=== PATIENT | male | born 1960 | race Caucasian/White ===

== ENCOUNTER 2019-08-26 13:53 | Emergency (ER) | payer MEDICAID ==
[~2019-08-26] VITALS: Ht 190.5 cm; Wt 96.0 kg
--- NOTE | 2019-08-26 14:20 | NUR ---
PT TEARFUL, COOPERATIVE WITH ASSESSMENT. STATES "I'M HEARING VOICES. THEY'RE CHANTING SCARY STUFF, SAYING 'JUST DO IT'". COMPLIANT WITH PSYCH MEDS. PT GIVEN URINE CUP AND INSTRUCTIONS ON USE. VERBALIZES UNDERSTANDING. PROVIDED WITH COLD WATER PER REQUEST. DNIES ANY FURTHER NEEDS OR CONCERNS AT THIS TIME.
--- NOTE | 2019-08-26 14:28 | NUR ---
PT AMBULATORY WITH STEADY GAIT TO ROOM. CHANGING INTO GOWN NOW. MD AT BEDSIDE TO ASSESS PT. PT PROVIDED URINE SAMPLE. URINE COLLECTED. PT'S BELONGINGS PLACED INTO BELONGINGS BAGS AND PUT INTO SECURE LOCKER.
--- NOTE | 2019-08-26 14:40 | NUR ---
2 LABELED BAGS OF BELONGINGS AND 2 LABELED BACKPACKS PLACED IN SECURE LOCKER. PT RESTING ON GURNEY IN GOWN WITH HOSPITAL PROVIDED SOCKS. PROVIDED WITH WARM BLANKET AND WATER. SITTER AT BEDSIDE. ROOM SECURE. PT AWARE OF POC. DENIES NEEDS AT THIS TIME.
[2019-08-26] MEDS ORDERED: LISI-167 PO (14:50)
[2019-08-26] MEDS ORDERED: DIVA500T2 PO (14:50)
[2019-08-26] MEDS ORDERED: HYDR50CA PO (14:50)
[2019-08-26 14:57] LABS: BASOPHILS # (AUTO) 0.05 x10^3/uL (0-0.1); BASOPHILS % (AUTO) 1 % (0-1); EOSINOPHILS % (AUTO) 2 % (1-7); LYMPHOCYTES # (AUTO) 1.94 x10^3/uL (1-3.4); LYMPHOCYTES % (AUTO) 22 % (22-44); MD NO; MEAN CORPUSCULAR HEMOGLOBIN 28.7 pg (27.5-34.5); MEAN CORPUSCULAR HGB CONC 32.5 g/dL (33.2-36.2); MEAN CORPUSCULAR VOLUME 88.4 fL (81-97); MEAN PLATELET VOLUME 7.7 fL (7.4-10.4); MONOCYTES # (AUTO) 0.87 x10^3/uL (0.2-0.8); MONOCYTES % (AUTO) 10 % (2-9); NEUTROPHILS # (AUTO) 5.66 x10^3/uL (1.8-6.8); NEUTROPHILS % (AUTO) 65 % (42-75); PLATELET COUNT 298 x10^3/uL (130-400); RED BLOOD COUNT 5.36 x10^6/uL (4.38-5.82)
[2019-08-26 15:06] LABS: ALBUMIN 4.3 g/dL (3.4-5.0); ANION GAP 5 mmol/L (5-15); CALCIUM 9.3 mg/dL (8.5-10.1); CHLORIDE 103 mmol/L (98-107); CREATININE 1.02 mg/dL (0.7-1.3)
[2019-08-26 15:08] LABS: AMPHETAMINE SCREEN, URINE Positive (Negative); BARBITURATE SCREEN, URINE Negative (Negative); BENZODIAZEPINE SCREEN, URINE Negative (Negative); CANNABINOID SCREEN, URINE Positive (Negative); COCAINE SCREEN, URINE Negative (Negative); METHADONE SCREEN, URINE Negative (Negative); OPIATE SCREEN, URINE Negative (Negative)
[2019-08-26 15:12] LABS: SALICYLATE LEVEL < 1.7 mg/dL (2.8-20.0)
--- NOTE | 2019-08-26 15:40 | NUR ---
PT REPORTS BEING ANXIOUS AT THIS TIME. INFORMED. MEDICATION ORDERED- REQUESTED FROM PHARMACY. PT AWARE OF POC. RESTING ON GURNEY. SITTER AT BEDSIDE. ROOM SECURE.
--- NOTE | 2019-08-26 15:47 | NUR ---
PT MEDICATED PER EMAR. DENIES FURTHER NEEDS AT THIS TIME. ROOM SECURE. SITTER AT BEDSIDE. FILI.
--- NOTE | 2019-08-26 15:50 | NUR ---
THROUGHPUT: LM ON VM FOR 3E WEBSPHERE PORTAL ARCHITECT FOR PT EVAL PER DR ROSE REQUEST.
[2019-08-26] MEDS ORDERED: HYDROXYZINE PAMOATE 50MG CAP PO ONE (16:00)
--- NOTE | 2019-08-26 16:14 | NUR ---
PT STATES HE IS FEELING BETTER. PROVIDED WITH MORE WATER. GION. RESTING ON GURNEY WATCHING TV. ROOM SECURE. SITTER IN HALLWAY.
--- NOTE | 2019-08-26 16:34 | NUR ---
DINNER TRAY ORDERED FOR PT.
--- NOTE | 2019-08-26 17:04 | NUR ---
PT PROVIDED WITH DINNER TRAY AND WATER. PSYCH DISH STACKER AT BEDSIDE ASSESSING PT NOW.
--- NOTE | 2019-08-26 17:22 | NUR ---
PER PSYCH HVAC SERVICE MANAGER, PT WILL HAVE SEROQUEL ORDERED THIS EVENING AND WILL LIKELY DC HOME TOMORROW. AWARE OF POC.
--- NOTE | 2019-08-26 18:16 | NUR ---
CHECK INSPECTOR AT BEDSIDE ASSESSING PT NOW.
--- NOTE | 2019-08-26 19:10 | NUR ---
PT RESTING CALMLY, DENIES NEEDS AT THSI TIME, ROOM SECURED, SITTER AT DOORWAY FOR CONTINOUS MONITORING
[2019-08-26] MEDS ORDERED: QUETIAPINE 100MG TABLET ONE (20:16)
--- NOTE | 2019-08-26 20:24 | NUR ---
PT SITTING UP WATCHING TV, EATING MEAL, PT REMAINS SECURED, PT MEDICATED PER MAR, DENIES NEEDS AT THSI TIME, SITTER AT DOORWAY FOR MONITORING
[2019-08-26] MEDS ORDERED: QUETIAPINE 100MG TABLET PO SCH (21:00)
--- NOTE | 2019-08-26 21:25 | NUR ---
PT RESTING CALMLY, DENIES NEEDS AT THIS TIME, SITTER AT DOORWAY FOR CONTINOUS MONITORING
--- NOTE | 2019-08-26 22:15 | NUR ---
PT RESTING CALMLY, NAD, DENIES NEEDS AT THIS TIME, SITTER AT DOORWAY FOR CONTINOUS MONITORING
--- NOTE | 2019-08-26 22:16 | NUR ---
HOSPITAL BED ORDER PLACED
--- NOTE | 2019-08-26 23:06 | NUR ---
PT RESTING CALMLY WITH EYES CLOSED, NAD, EQUAL CHEST RISE/FALL OBSERVED, SITTER AT DOORWAY FOR CONTINOUS MONITORING
--- NOTE | 2019-08-26 23:07 | NUR ---
PROVIDED PT WITH HOSPITAL BED
--- NOTE | 2019-08-27 00:11 | NUR ---
PT RESTING CALMLY WITH EYES CLOSED, EQUAL CHEST RISE/FALL OBSERVED, SITTER AT DOORWAY FOR CONTINOUS MONITORING
--- NOTE | 2019-08-27 01:59 | NUR ---
PT RESTING WITH EYES COSED, NAD, EQUAL CHEST RISE/FALL OBSERVED, SITTER AT DOORWAY FOR CONTINOUS MONITORING
--- NOTE | 2019-08-27 03:09 | NUR ---
PT RESTING WITH EYES COSED, REPOSITIONED SELF IN BED, EQUAL CHEST RISE/FALL OBSERVED, SITTER AT DOORWAY FOR CONTINOUS MONITORING
--- NOTE | 2019-08-27 04:28 | NUR ---
PT RESTING WITH EYES COSED, NAD, EQUAL CHEST RISE/FALL OBSERVED, SITTER AT DOORWAY FOR CONTINOUS MONITORING
--- NOTE | 2019-08-27 05:04 | NUR ---
PT RESTING CALMLY WITH EYES CLOSED, REPOSITIONED SELF IN BED, EQUAL CHEST RISE/FALL OBSERVED, SITTER AT DOORWAY FOR CONTINOUS MONITORING
--- NOTE | 2019-08-27 05:57 | NUR ---
PROVIDED PT WITH JUICE AND CRACKERS PER HIS REQUEST, SAFETY PRECAUTIONS MAINTAINED, SITTER AT DOORWAY FOR CONTINOUS MONITORING
--- NOTE | 2019-08-27 06:56 | NUR ---
REPORT GIVEN TO ARCELIA CARVAJAL
--- NOTE | 2019-08-27 07:00 | NUR ---
REPORT RECEIVED FROM MISA PANIAGUA.
--- NOTE | 2019-08-27 08:19 | NUR ---
MEAL TRAY PROVIDED AT THIS TIME.
[2019-08-27 08:20] VITALS: BP 128/72
--- NOTE | 2019-08-27 09:43 | NUR ---
SNACKS AND JUICE PROVIDED AT THIS TIME.
--- NOTE | 2019-08-27 10:55 | NUR ---
PT SLEEPING IN BED. RESPS EVEN AND UNLABORED. SITTER MONITORING FROM HALLWAY FOR SAFETY. ROOM REMAINS SECURE.
--- NOTE | 2019-08-27 11:31 | NUR ---
MEAL TRAY ORDERED AT THIS TIME.
--- NOTE | 2019-08-27 12:19 | NUR ---
PT RECEIVED MEAL TRAY AND APPLE JUICE X2 PER REQUEST. GIO.
[2019-08-27] MEDS ORDERED: HYDROXYZINE PAMOATE 50MG CAP PO ONE (13:30)
[2019-08-27] MEDS ORDERED: HYDROXYZINE PAMOATE 50MG CAP ONE (13:34)
--- NOTE | 2019-08-27 13:37 | NUR ---
PT MEDICATED PER EMAR. PT TOLERATED WELL.
--- NOTE | 2019-08-27 13:45 | NUR ---
Patient given discharge instructions and they have confirmed that they understand the instructions. Patient ambulatory with steady gait.
== END 2019-08-27 13:46 | disposition home or self-care (01) ==
LOC: ED 17:03
DX: F15.10 Other stimulant abuse, uncomplicated (principal); R44.0 Auditory hallucinations; F41.9 Anxiety disorder, unspecified; I10 Essential (primary) hypertension; F31.9 Bipolar disorder, unspecified; F17.200 Nicotine dependence, unspecified, uncomplicated
CPT/HCPCS: 36415; 80048; 80307; 82040; 85025; 99284

== ENCOUNTER 2019-08-28 04:32 | Emergency (ER) | payer MEDICAID ==
[~2019-08-28] VITALS: Ht 180.3 cm; Wt 98.8 kg
[~2019-08-28 04:32] MED LIST: DIVA500T2 PO; HYDR50CA PO; LISI-167 PO
[2019-08-28 04:37] VITALS: BP 197/116
--- NOTE | 2019-08-28 04:54 | NUR ---
TWO PATIENT BELONGINGS BAGS AND TWO BACKPACKS STICKERED AND PLACED IN LOCKED CABINET.
[2019-08-28] MEDS ORDERED: LISINOPRIL 10 MG TABLET PO ONE (05:00)
--- NOTE | 2019-08-28 05:05 | NUR ---
PA AND HAVE EVALUATED THE PT. PLAN IS TO MEDICATE AND DC.
[2019-08-28] MEDS ORDERED: LISINOPRIL 10 MG TABLET ONE (05:18)
[2019-08-28] MEDS ORDERED: QUETIAPINE 100MG TABLET ONE (05:18)
--- NOTE | 2019-08-28 05:24 | NUR ---
PT MEDICATED PER NOV. BELONGINGS RETURNED TO PATIENT. PT REQUESTING A PLACE TO SLEEP. PT WAS INFORMED WE CANNOT ALLOW HIM TO SLEEP IN THE ER ROOM HE IS BEING DISCHARGED.
[2019-08-28] MEDS ORDERED: QUETIAPINE 100MG TABLET PO ONE (05:30)
== END 2019-08-28 05:29 | disposition home or self-care (01) ==
LOC: ED 05:11
DX: F20.9 Schizophrenia, unspecified (principal); I10 Essential (primary) hypertension; F15.10 Other stimulant abuse, uncomplicated; Z72.9 Problem related to lifestyle, unspecified
CPT/HCPCS: 99284

== ENCOUNTER 2020-11-22 10:08 | Emergency (ER) | payer MEDICAID ==
[~2020-11-22] VITALS: Ht 180.3 cm; Wt 109.0 kg
--- NOTE | 2020-11-22 10:54 | NUR ---
PT STATES HE FEELS ANXIOUS AND PARANOID. MHE COMPLETED BY ANJUM AND SEEN BY
[2020-11-22 11:00] VITALS: BP 165/98
[2020-11-22] MEDS ORDERED: BUPROPION 75 MG TABLET PO ONE (11:00)
[2020-11-22] MEDS ORDERED: OXCARBAZEPINE 150 MG TABLET PO SCH (11:00)
[2020-11-22] MEDS ORDERED: ARIPIPRAZOLE 10 MG TABLET PO SCH (11:00)
[2020-11-22] MEDS ORDERED: HYDROXYZINE PAMOATE 50MG CAP PO ONE (11:00)
[2020-11-22] MEDS ORDERED: ARIPIPRAZOLE 10 MG TABLET ONE (11:04)
--- NOTE | 2020-11-22 11:11 | NUR ---
reviewed discharge, shows understanding. got patient bus voucher and cab voucher to get to [facility] for his meds, then home. shows understanding. medicating patient here, will discharge patient once meds arrive from pharmacy
== END 2020-11-22 11:54 | disposition home or self-care (01) ==
LOC: ED 11:05
DX: F25.9 Schizoaffective disorder, unspecified (principal); F41.9 Anxiety disorder, unspecified; I10 Essential (primary) hypertension
CPT/HCPCS: 99284